=== PATIENT | male | born 1960 | race Hispanic/Latino ===

== ENCOUNTER 2018-10-06 15:30 | Emergency (ER) | payer OTHER ==
[2018-10-06] MEDS ORDERED: TETANUS/DIPHTHERIA TOXOID [ADULT] 0.5 ML VIAL IM ONE (15:44)
[2018-10-06] MEDS ORDERED: CLINDAMYCIN HCL 150 MG CAP ONE (15:44)
[2018-10-06] MEDS ORDERED: LIDOCAINE HCL 1% 20 ML VIAL ONE (15:50)
== END 2018-10-06 17:52 | disposition home or self-care (01) ==
LOC: EDH 15:30
DX: L02.611 Cutaneous abscess of right foot (principal); R03.0 Elevated blood-pressure reading, without diagnosis of hypertension; Z87.891 Personal history of nicotine dependence
CPT/HCPCS: 10060; 73620; 90471; 90714

== ENCOUNTER 2019-01-04 05:04 | Inpatient (IN) | payer OTHER ==
[~2019-01-04] VITALS: Ht 165.1 cm; Wt 65.1 kg
[2019-01-04] MEDS ORDERED: ASPIRIN 325 MG TABLET ONE (05:18)
[2019-01-04 05:39] LABS: BASOPHILS % (AUTO) 1.4 % (0.0-5.0); EOSINOPHILS % (AUTO) 3.6 % (0.0-8.0); HEMATOCRIT 40.6 % (42-54); LYMPHOCYTES % (AUTO) 39.2 % (21.0-51.0); MEAN CORPUSCULAR HEMOGLOBIN 34.2 pg (27.0-33.0); MEAN CORPUSCULAR HGB CONC 35.4 g/dL (32.0-36.0); MEAN CORPUSCULAR VOLUME 96.5 fL (79-99); MONOCYTES % (AUTO) 11.3 % (3.0-13.0); NEUTROPHILS % (AUTO) 44.5 % (40.0-77.0); NUCLEATED RED BLOOD CELLS 0.1 % (0.0-0.19); PLATELET COUNT (AUTO) 149 K/uL (130-400); RED CELL DISTRIBUTION WIDTH 13.2 % (11.0-15.5); WHITE BLOOD COUNT (AUTO) 4.2 K/uL (4.8-10.8)
[2019-01-04 05:44] LABS: CREATININE 0.8 mg/dL (0.5-1.5); INR 0.95 (0.85-1.15); PARTIAL THROMBOPLASTIN TIME 29.4 SEC (26.3-35.5); POTASSIUM 4.5 mmol/L (3.5-5.1)
[2019-01-04 05:49] LABS: ALBUMIN 3.6 g/dL (3.5-5.0); BILIRUBIN,TOTAL 0.3 mg/dL (0.2-1.0); TOTAL PROTEIN, SERUM 7.1 g/dL (6.0-8.3)
[2019-01-04 06:04] LABS: B-TYPE NATRIURETIC PEPTIDE 70 pg/mL (0-100)
[2019-01-04] MEDS ORDERED: NITROGLYCERIN 1GM/1 INCH PACKET TD ONE (06:19)
[2019-01-04] MEDS ORDERED: MORPHINE SULFATE 2 MG/ML 1ML SYG IV PRN (06:45)
[2019-01-04] MEDS ORDERED: ONDANSETRON HCL 4 MG/2 ML VIAL IV PRN (06:45)
[2019-01-04] MEDS ORDERED: ACETAMINOPHEN 325 MG TAB PO PRN ×3 (06:45→07:00)
[2019-01-04] MEDS ORDERED: ONDANSETRON HCL 4 MG/2 ML VIAL IVP PRN (07:00)
[2019-01-04] MEDS ORDERED: MORPHINE SULFATE 2 MG/ML 1ML SYG IVP PRN (07:00)
[2019-01-04] MEDS ORDERED: DEXTROSE 50%-WATER 50 ML DISP.SYRIN IV PRN ×2 (07:00)
[2019-01-04] MEDS ORDERED: NITROGLYCERIN 1GM/1 INCH PACKET TD PRN (07:00)
[2019-01-04] MEDS ORDERED: GLUCAGON 1MG KIT 1 MG ML IM PRN ×2 (07:00)
[2019-01-04] MEDS: NITROGLYCERIN 1GM/1 INCH PACKET TD SCH ×3 (07:00→22:15)
[2019-01-04 07:30] LABS: HEMOGLOBIN A1C 9.3 % (4.0-6.0)
[2019-01-04] MEDS ORDERED: INSULIN HUMULIN R 100 UNIT/ML 3ML SQ SCH (07:30)
[2019-01-04] MEDS: INSULIN R PO SS1 SQ SCH ×4 (07:30→21:00)
[2019-01-04] MEDS: ASPIRIN 81 MG EC TAB PO SCH (09:00)
[2019-01-04] MEDS ORDERED: ENOXAPARIN SODIUM 30 MG/0.3 ML SQ SCH (09:00)
[2019-01-04] MEDS: ENOXAPARIN SODIUM 30 MG/0.3 ML SQ SCH (09:00)
[2019-01-04] MEDS: FAMOTIDINE 20MG TAB 20 MG TAB PO SCH ×2 (09:00→21:01)
[2019-01-04] MEDS ORDERED: ASPIRIN 81MG TAB.CHEW PO SCH (09:00)
[2019-01-04] MEDS ORDERED: FAMOTIDINE 20MG TAB 20 MG TAB ONE (09:56)
[2019-01-04] MEDS ORDERED: HYDRALAZINE HCL 20 MG/ML VIAL ONE (09:56)
[2019-01-04] MEDS ORDERED: ENOXAPARIN SODIUM 30 MG/0.3 ML SQ ONE (09:57)
[2019-01-04 11:00] VITALS: BP 167/86
--- NOTE | 2019-01-04 11:04 | NUR ---
DR. FELIPA GARVEY PAGED REGARDING CONSULT.
--- NOTE | 2019-01-04 13:50 | NUR ---
DR. FELIPA GARVEY HERE TO SEE PATIENT.
[2019-01-04 14:15] LABS: TROPONIN I 1.11 ng/mL (0.00-0.06)
--- NOTE | 2019-01-04 14:18 | NUR ---
ELEVATED TROPONIN CALLED DR. LEO TO REPORT TROPONIN 1.11. INITIALLY DR. LEO STATED TO PROCEED WITH STRESS TEST FOR TOMORROW 01/05/19, THEN DR. LEO CALLED ME AGAIN AND ORDERED KEEP PATIENT NPO AFTER MIDNIGHT FOR A HEART CATH TOMORROW 01/05/19 AND MD WOULD F/U WITH PATIENT TOMORROW 01/05/19 MORNING.
[2019-01-04 16:35] VITALS: BP 152/108
[2019-01-04 19:24] LABS: TROPONIN I 0.18 ng/mL (0.00-0.06)
[2019-01-04 19:30] VITALS: BP 187/98
[2019-01-04] MEDS: HYDRALAZINE HCL 20 MG/ML VIAL IV PRN (21:02)
[2019-01-04 22:09] VITALS: BP 149/88
[2019-01-05] VITALS (15 sets, daily range): BP systolic 105–187; BP diastolic 63–102
[2019-01-05 04:47] LABS: HEMATOCRIT 40.8 % (42-54); MEAN CORPUSCULAR HEMOGLOBIN 33.1 pg (27.0-33.0); MEAN CORPUSCULAR HGB CONC 34.2 g/dL (32.0-36.0); MEAN CORPUSCULAR VOLUME 96.6 fL (79-99); PLATELET COUNT (AUTO) 171 K/uL (130-400); RED BLOOD CELL COUNT(AUTO) 4.22 MIL/uL (4.50-6.20); RED CELL DISTRIBUTION WIDTH 13.2 % (11.0-15.5); WHITE BLOOD COUNT (AUTO) 5.1 K/uL (4.8-10.8)
[2019-01-05 04:55] LABS: CREATININE 0.6 mg/dL (0.5-1.5); POTASSIUM 4.1 mmol/L (3.5-5.1)
[2019-01-05 04:59] LABS: INR 0.95 (0.85-1.15); PARTIAL THROMBOPLASTIN TIME 29.1 SEC (26.3-35.5)
[2019-01-05] MEDS: INSULIN R PO SS1 SQ SCH ×4 (05:45→21:32)
[2019-01-05] MEDS: NITROGLYCERIN 1GM/1 INCH PACKET TD SCH ×3 (06:16→23:00)
[2019-01-05] MEDS ORDERED: SODIUM CHLORIDE 0.9% 500ML 500 ML IV SCH (08:50)
[2019-01-05] MEDS: FAMOTIDINE 20MG TAB 20 MG TAB PO SCH ×2 (09:00→19:50)
[2019-01-05] MEDS: ENOXAPARIN SODIUM 30 MG/0.3 ML SQ SCH (09:00)
[2019-01-05] MEDS: ASPIRIN 81 MG EC TAB PO SCH (09:00)
--- NOTE | 2019-01-05 12:00 | NUR ---
INITIAL MET W PT; NO MOBILITY DEFICITS, WORKS [employer], NO DME/HH; LIVES W [facility]EL[facility] WHO WILL PROVIDE TRANSPORT; UNINSURED, PREVIOUSLY CLIENT OF [facility] [address], LOST TO FOLLOW UP; PKT GIVEN AND ADVISED TO REACH OUT FOR APPT/REAPPLY FOR SPOT. MED COUPONS GIVEN WILL NEED ELIQUIS COUPONS IF RX'D AFTER DISCHARGE Addendum: 01/06/19 at 0758 by STEFF GAVIRIA RN CM Amended: Links added.
--- NOTE | 2019-01-05 13:38 | NUR ---
Heart healthy, diabetes diet education Provided pt with printed materials on heart healthy and diabetes diet education. Also encouraged pt to eliminate alcohol intake. Pt and sister with multiple questions, all questions answered by [place]. Addendum: 01/05/19 at [address] Amended: Links added.
--- NOTE | 2019-01-05 14:32 | NUR ---
lovenox not given patient pending heart cath
[2019-01-05] MEDS ORDERED: LIDOCAINE HCL 1% 20 ML VIAL ONE (16:57)
[2019-01-05] MEDS ORDERED: BIVALIRUDIN 250 MG/VIAL IV ONE (16:58)
[2019-01-05] MEDS ORDERED: NITROGLYCERIN 5 MG/ML 10 ML VIAL IV ONE (16:58)
[2019-01-05] MEDS ORDERED: HEPARIN SODIUM 1000UNIT/ML 10ML VIAL ONE (16:58)
[2019-01-05] MEDS ORDERED: IOHEXOL-350 50ML VIAL IV ONE ×2 (16:58→18:02)
[2019-01-05] MEDS ORDERED: IOHEXOL 350 MG/ML 100ML INFUS..BTL IV ONE (16:58)
[2019-01-05] MEDS ORDERED: ONDANSETRON HCL 4 MG/2 ML VIAL ONE (17:59)
[2019-01-05] MEDS ORDERED: NITROGLYCERIN 4.1 GM SPRAY TL ONE (18:13)
[2019-01-05] MEDS ORDERED: ENALAPRILAT DIHYDRATE 1.25 MG/ML 2ML VIAL IVP ONE (18:30)
[2019-01-05] MEDS ORDERED: CEFAZOLIN SODIUM 1 GM VIAL IVP PRN (19:45)
[2019-01-05] MEDS: HYDRALAZINE HCL 20 MG/ML VIAL IV PRN (19:51)
[2019-01-05 21:26] LABS: CHOLESTEROL 164 mg/dL (<200); HDL CHOLESTEROL 130 mg/dL (29-71); LDL DIRECT 68 mg/dL (0-99); TRIGLYCERIDES 56 mg/dL (30-200)
[2019-01-05 22:06] LABS: HEMOGLOBIN A1C 9.2 % (4.0-6.0)
[2019-01-06] VITALS (22 sets, daily range): BP systolic 102–190; BP diastolic 48–100
[2019-01-06] MEDS: INSULIN R PO SS1 SQ SCH (06:26)
[2019-01-06] MEDS: NITROGLYCERIN 1GM/1 INCH PACKET TD SCH (06:37)
[2019-01-06] MEDS ORDERED: NITROGLYCERIN 50 MG/D5% WATER 1 BOT ONE (07:24)
[2019-01-06] MEDS ORDERED: PAPAVERINE HCL 30 MG/ML 2ML VIAL ONE (07:38)
[2019-01-06] MEDS ORDERED: OCTYL 2-CYANOACRYLATE 1 EACH TP ONE (07:38)
[2019-01-06] MEDS ORDERED: BACITRACIN 50,000 UNIT VIAL ONE (07:39)
[2019-01-06] MEDS: ASPIRIN 81 MG EC TAB PO SCH (08:11)
[2019-01-06] MEDS: ENOXAPARIN SODIUM 30 MG/0.3 ML SQ SCH (08:11)
[2019-01-06] MEDS: FAMOTIDINE 20MG TAB 20 MG TAB PO SCH (08:11)
--- NOTE | 2019-01-06 08:12 | NUR ---
PATIENT TAKEN DOWN TO SURGERY AT THIS TIME.
[2019-01-06] MEDS ORDERED: NOREPINEPHRINE BITARTRATE 1 MG/1 ML ML IV ONE (08:20)
[2019-01-06] MEDS ORDERED: PROTAMINE SULFATE 10 MG/ML 25ML VIAL IV ONE (08:20)
[2019-01-06] MEDS ORDERED: ESMOLOL HCL 10 MG/ML 10 ML VIAL ONE ×2 (08:20→08:45)
[2019-01-06] MEDS ORDERED: AMINOCAPROIC ACID 250 MG/ML 20 ML VIAL IV ONE (08:20)
[2019-01-06] MEDS ORDERED: EPINEPHRINE 1 MG/ML AMPULE ONE (08:20)
[2019-01-06] MEDS ORDERED: LIDOCAINE PF 2% 5ML ABBOJECT ONE (08:20)
[2019-01-06] MEDS ORDERED: HEPARIN SODIUM 1000UNIT/ML 10ML VIAL ONE (08:20)
[2019-01-06] MEDS ORDERED: ROCURONIUM 10MG/1ML SYR 10 MG/ML ML ONE (08:21)
[2019-01-06] MEDS ORDERED: PROPOFOL 10 MG/ML 20ML VIAL IV ONE ×2 (08:21→12:43)
[2019-01-06] MEDS ORDERED: FENTANYL CITRATE PF 50 MCG/1 ML 20ML VIAL IJ ONE (08:21)
[2019-01-06] MEDS ORDERED: ATROPINE SULFATE 0.1 MG/ML 10 ML SYG IVP ONE (08:21)
[2019-01-06] MEDS ORDERED: MIDAZOLAM HCL 1 MG/ML 5ML VIAL ONE (08:21)
[2019-01-06] MEDS ORDERED: ETOMIDATE 2 MG/ML 10 ML VIAL ONE (08:22)
[2019-01-06] MEDS ORDERED: AMIODARONE HCL 50 MG/ML 3 ML VIAL ONE (08:40)
[2019-01-06] MEDS ORDERED: THROMBIN-JMI 5000 UNIT/VIAL TP ONE (08:44)
[2019-01-06] MEDS ORDERED: GLYCOPYRROLATE 1 MG/5 ML SYRINGE ONE (09:01)
[2019-01-06] MEDS ORDERED: SODIUM BICARB 50MEQ 50ML VIAL ONE ×2 (09:04→12:05)
[2019-01-06 09:09] LABS: ABG BASE EXCESS -1.2 mmol/L (-2.0-3.0); ABG HCO3 20.3 mmol/L (21.0-28.0); ABG OXYGEN SATURATION 99.5 % (95.0-99.0); ABG PCO2 26 mmHg (35-48)
[2019-01-06 10:55] LABS: ABG BASE EXCESS 0.1 mmol/L (-2.0-3.0); ABG OXYGEN SATURATION 99.4 % (95.0-99.0); ABG PCO2 36 mmHg (35-48)
[2019-01-06] MEDS ORDERED: POTASSIUM CHLORIDE 20MEQ/100ML 200 ML IV ONE (11:01)
[2019-01-06] MEDS ORDERED: FENTANYL CITRATE PF 50 MCG/1 ML 2ML VIAL ONE ×3 (11:21)
[2019-01-06] MEDS ORDERED: SODIUM CHLORIDE 0.9% 500ML 500 ML IV SCH (11:47)
[2019-01-06] MEDS ORDERED: MORPHINE SULFATE 4 MG/1ML SYG IV PRN (12:00)
[2019-01-06] MEDS ORDERED: GLUCAGON 1MG KIT 1 MG ML IM PRN (12:00)
[2019-01-06] MEDS ORDERED: AMINOCAPROIC ACID 15,000 MG in SODIUM CHLORIDE 0.9% 250 ML IV SCH (12:00)
[2019-01-06] MEDS ORDERED: ACETAMINOPHEN 650 MG SUPPOSITORY RC PRN (12:00)
[2019-01-06] MEDS ORDERED: EPINEPHRINE 8 MG in DEXTROSE 5%-WATER 250 ML IV PRN (12:00)
[2019-01-06] MEDS ORDERED: MORPHINE SULFATE 2 MG/ML 1ML SYG IV PRN (12:00)
[2019-01-06] MEDS ORDERED: SODIUM CHLORIDE 0.9% 1000ML 1,000 ML IV SCH (12:00)
[2019-01-06] MEDS ORDERED: ALBUMIN (HUMAN) 5% 250 ML IV PRN (12:00)
[2019-01-06] MEDS ORDERED: POTASSIUM PHOS 15 mMOL+NS250ML 250 ML IV PRN (12:00)
[2019-01-06] MEDS ORDERED: SODIUM BICARB 50MEQ 50ML VIAL IV PRN (12:00)
[2019-01-06] MEDS ORDERED: NITROGLYCERIN 50 MG/D5% WATER 250 BOT IV SCH (12:00)
[2019-01-06] MEDS ORDERED: ACETAMINOPHEN 325 MG TAB PO PRN (12:00)
[2019-01-06] MEDS ORDERED: DEXTROSE 50%-WATER 50 ML DISP.SYRIN IV PRN (12:00)
[2019-01-06] MEDS ORDERED: SODIUM CHLORIDE 0.9% 10 ML VIAL IVP PRN (12:00)
[2019-01-06] MEDS ORDERED: ONDANSETRON HCL 4 MG/2 ML VIAL IV PRN (12:00)
[2019-01-06] MEDS ORDERED: PROPOFOL 1000 MG/100 ML 100 ML IV PRN (12:00)
[2019-01-06] MEDS ORDERED: INSULIN REGULAR, HUMAN 3ML 100 UNIT in SODIUM CHLORIDE 0.9% 99 ML IV SCH ×2 (12:00)
[2019-01-06] MEDS ORDERED: SODIUM CHLORIDE 0.9% 250 ML IV PRN (12:00)
[2019-01-06] MEDS ORDERED: NOREPINEPHRINE 4MG/NS 250ML 250 ML IV PRN (12:00)
[2019-01-06] MEDS ORDERED: CALCIUM GLUCONATE 1 GM in SODIUM CHLORIDE 0.9% 50 ML IV PRN (12:00)
[2019-01-06 12:06] LABS: ABG BASE EXCESS -4.9 mmol/L (-2.0-3.0); ABG HCO3 18.1 mmol/L (21.0-28.0); ABG PCO2 28 mmHg (35-48)
--- NOTE | 2019-01-06 12:55 | NUR ---
POST OP ASSESSMENT Received pt immediately post op - orally intubated. Not yet responsive to verbal/tactile stimulation. SR on tele. Strong apical heart tones - friction rub noted. Clear breath sounds. Vent settings as recorded. Received pt on amicar @50ml/hr - no other IV gtts infusing upon arrival. Sternal drsg is clean, dry. Dry gauze/tegaderm drsg to right side of neck at previous CVP line site. Pt with patent left SBC CVP line in use. Left radial arterial line patent - acceptable waveform/brisk blood return. PIV to RPF patent. Non-functioning SL to LAC. OGT in place - placement verified per routine and placed to LIS. Abd soft - absent bowel sounds. CT's x2 in place - 19fr left pleural, 24fr MS - Y connected to single atrium. Sanguineous drainage. No air leak - no crepitus. CT's placed to 20cm suction. F/C patent - yellow urine. JULY bandages/surgical drsgs to BLE's. Pedal pulses are palpable. Assessment completed/recorded.
--- NOTE | 2019-01-06 13:25 | NUR ---
STATUS With tactile stimulation, pt readily arousable but not cooperative with caregiver. Pt began sitting up and flailing arms. Attempts made to reassure pt but pt was unable to be pacified. Sedation initiated.
[2019-01-06] MEDS ORDERED: ALBUMIN (HUMAN) 5% 250 ML IV ONE (13:29)
[2019-01-06 13:44] LABS: ABG HCO3 22.9 mmol/L (21.0-28.0); ABG OXYGEN SATURATION 98.7 % (95.0-99.0); ABG PCO2 35 mmHg (35-48)
[2019-01-06 13:53] LABS: HEMATOCRIT 32.6 % (42-54); MEAN CORPUSCULAR HEMOGLOBIN 34.4 pg (27.0-33.0); MEAN CORPUSCULAR HGB CONC 35.1 g/dL (32.0-36.0); PLATELET COUNT (AUTO) 134 K/uL (130-400); RED BLOOD CELL COUNT(AUTO) 3.33 MIL/uL (4.50-6.20); WHITE BLOOD COUNT (AUTO) 7.8 K/uL (4.8-10.8)
[2019-01-06 14:10] LABS: INR 1.09 (0.85-1.15); PARTIAL THROMBOPLASTIN TIME 27.4 SEC (26.3-35.5); PROTHROMBIN TIME 11.4 SEC (9.6-11.6)
[2019-01-06 14:17] LABS: CREATININE 0.7 mg/dL (0.5-1.5); MAGNESIUM 1.7 mg/dL (1.80-2.40); PHOSPHORUS 4.1 mg/dL (2.5-4.9); POTASSIUM 3.7 mmol/L (3.5-5.1)
--- NOTE | 2019-01-06 14:40 | NUR ---
FAMILY VISIT Pt's family members in to see pt - updated. Discussed routine post op plan of care. Questions addressed. Pt's son, Dudley, is the spokesperson. CVR phone number provided to him. Discussed CVR visitation. Pt remains quietly sedated.
--- NOTE | 2019-01-06 16:44 | NUR ---
STATUS Drowsy - arousable with verbal stimulation. Sedation off. Will observe pt tolerance. SR on tele. No evidence of distress. Attempts made to reassure/reorient pt.
[2019-01-06] MEDS: CEFAZOLIN SODIUM 1 GM VIAL IV SCH (17:12)
[2019-01-06] MEDS: POTASSIUM CHLORIDE 20MEQ/100ML 100 ML IV PRN ×2 (17:13→22:29)
[2019-01-06] MEDS: MAGNESIUM 2GM PREMIX 50ML 50 ML IV PRN (17:13)
--- NOTE | 2019-01-06 17:45 | NUR ---
STATUS Arousable with verbal stimulation. Focuses and follows commands. ABG's acceptable. Weaning parameters attempted - pt did not meet extubation criteria. Pt reassured. Is in no acute distress. Will observe.
[2019-01-06 17:47] LABS: ABG HCO3 25.7 mmol/L (21.0-28.0); ABG OXYGEN SATURATION 97.9 % (95.0-99.0); ABG PCO2 46 mmHg (35-48)
--- NOTE | 2019-01-06 19:00 | NUR ---
ASSESSMENT ASSUMED CARE. DROWSY, AROUSABLE WHEN CALLED BY NAME. ATTEMPTS TO COMMUNICATE WITH HAND GESTURES. INTUBATED ON PRESCRIBED VENT SETTINGS. VENT WEANING IN PROGRESS. CHEST TUBES X2 SECURE AND DRAINING TO 20CM H2O SUCTION. BILATERAL LOWER EXTREMITIES WRAPPED WITH ELASTIC BANDAGES. BILATERAL PEDAL PULSES PALPABLE. HARTLEY CATHETER SECURE & PATENT. INSULIN DRIP INFUSING PER PROTOCOL. NTG DRIP INFUSING VIA LEFT SUBCLAVIAN CENTRAL LINE AT 10MCG/MIN, AMIKAR 50ML/HR, NS 10ML/HR. FULL ASSESSMENT DOCUMENTED.
[2019-01-06] MEDS ORDERED: NICARDIPINE HCL 100 MG in SODIUM CHLORIDE 0.9% 60 ML IV PRN (19:45)
[2019-01-06 21:05] LABS: ABG BASE EXCESS 2.8 mmol/L (-2.0-3.0); ABG HCO3 27.8 mmol/L (21.0-28.0); ABG OXYGEN SATURATION 98.3 % (95.0-99.0); ABG PCO2 44 mmHg (35-48)
--- NOTE | 2019-01-06 21:10 | NUR ---
EXTUBATED PER CVR VENT WEANING PROTOCOL. INSTRUCTED ON VOICE REST X2 HOURS TO PREVENT LARYNGEAL EDEMA AND RESPIRATORY DISTRESS. NODDED HEAD IN UNDERSTANDING.
[2019-01-06 21:45] LABS: ABG BASE EXCESS 0.7 mmol/L (-2.0-3.0); ABG HCO3 26.8 mmol/L (21.0-28.0); ABG OXYGEN SATURATION 98.6 % (95.0-99.0); ABG PCO2 48 mmHg (35-48)
[2019-01-06] MEDS ORDERED: CALCIUM GLUCONATE 1 GM/10 ML VIAL IV ONE (21:47)
[2019-01-06] MEDS: FAMOTIDINE/PF 20 MG/2 ML VIAL IV SCH (21:54)
[2019-01-07] VITALS (31 sets, daily range): BP systolic 100–156; BP diastolic 54–89
[2019-01-07] MEDS: CEFAZOLIN SODIUM 1 GM VIAL IV SCH ×2 (00:10→08:28)
[2019-01-07] MEDS: TRAMADOL HCL 50 MG TABLET PO PRN ×4 (00:41→20:46)
[2019-01-07] MEDS ORDERED: CALCIUM GLUCONATE 1 GM/10 ML VIAL IV ONE (01:17)
[2019-01-07 03:21] LABS: HEMATOCRIT 30.9 % (42-54); MEAN CORPUSCULAR HEMOGLOBIN 33.5 pg (27.0-33.0); MEAN CORPUSCULAR HGB CONC 34.3 g/dL (32.0-36.0); MEAN CORPUSCULAR VOLUME 97.6 fL (79-99); PLATELET COUNT (AUTO) 123 K/uL (130-400); RED BLOOD CELL COUNT(AUTO) 3.17 MIL/uL (4.50-6.20); RED CELL DISTRIBUTION WIDTH 13.3 % (11.0-15.5); WHITE BLOOD COUNT (AUTO) 7.3 K/uL (4.8-10.8)
[2019-01-07 03:25] LABS: CREATININE 0.6 mg/dL (0.5-1.5); MAGNESIUM 1.8 mg/dL (1.80-2.40); PHOSPHORUS 5.9 mg/dL (2.5-4.9); POTASSIUM 4.2 mmol/L (3.5-5.1)
[2019-01-07 04:11] LABS: ABG BASE EXCESS -0.8 mmol/L (-2.0-3.0); ABG HCO3 25.7 mmol/L (21.0-28.0); ABG OXYGEN SATURATION 98.9 % (95.0-99.0); ABG PCO2 49 mmHg (35-48)
[2019-01-07] MEDS: MAGNESIUM 2GM PREMIX 50ML 50 ML IV PRN (04:17)
[2019-01-07 04:48] LABS: INR 1.02 (0.85-1.15); PARTIAL THROMBOPLASTIN TIME 27.7 SEC (26.3-35.5); PROTHROMBIN TIME 10.5 SEC (9.6-11.6)
--- NOTE | 2019-01-07 05:00 | NUR ---
OUT OF BED TO CHAIR STRONG, STEADY GAIT. TOLERATED WELL. DENIED DIZZINESS & LIGHT-HEADEDNESS. V/S WITHIN PARAMETERS. ALL IV LINES, TUBES, SECURE. ENCOURAGED I.S. Q1HR. TOLERATED 500ML X10 . WEANED OFF ALL DRIPS. CURRENTLY ONLY INSULIN DRIP INFUSING PER CVR PROTOCOL.
[2019-01-07] MEDS ORDERED: PHARMACY COMMUNICATION MISC SCH (06:15)
[2019-01-07] MEDS ORDERED: CALCIUM GLUCONATE 2 GM in SODIUM CHLORIDE 0.9% 100 ML IV SCH (08:00)
[2019-01-07] MEDS: FAMOTIDINE/PF 20 MG/2 ML VIAL IV SCH ×2 (08:27→20:16)
[2019-01-07] MEDS: METOPROLOL TARTRATE 25 MG TAB PO SCH ×2 (08:28→20:16)
[2019-01-07] MEDS ORDERED: ASPIRIN 81MG TAB.CHEW PO SCH (09:00)
[2019-01-07] MEDS ORDERED: PROMETHAZINE HCL 25 MG/ML 1ML AMPULE IVPB PRN (11:00)
[2019-01-07] MEDS: METOCLOPRAMIDE 10 MG/2 ML VIAL IVP SCH ×2 (11:15→20:16)
[2019-01-07] MEDS: ENOXAPARIN SODIUM 30 MG/0.3 ML SQ SCH (11:16)
[2019-01-07] MEDS: DEXTROSE IV SCH (11:33)
[2019-01-07] MEDS: NACL IV SCH (11:33)
[2019-01-07] MEDS: POTASSIUM CHLORIDE IV SCH (11:33)
[2019-01-07] MEDS: ATORVASTATIN CALCIUM 40 MG TABLET PO SCH (20:16)
[2019-01-07] MEDS: INSULIN HUMULIN R 100 UNIT/ML 3ML SQ SCH (21:25)
[2019-01-08] VITALS (17 sets, daily range): BP systolic 100–151; BP diastolic 55–81
[2019-01-08 03:52] LABS: BASOPHILS % (AUTO) 0.4 % (0.0-5.0); EOSINOPHILS % (AUTO) 0.5 % (0.0-8.0); LYMPHOCYTES % (AUTO) 11.3 % (21.0-51.0); MEAN CORPUSCULAR HEMOGLOBIN 34.8 pg (27.0-33.0); MEAN CORPUSCULAR HGB CONC 35.3 g/dL (32.0-36.0); MEAN CORPUSCULAR VOLUME 98.6 fL (79-99); MONOCYTES % (AUTO) 12.4 % (3.0-13.0); NEUTROPHILS % (AUTO) 75.4 % (40.0-77.0); NUCLEATED RED BLOOD CELLS 0.1 % (0.0-0.19); PLATELET COUNT (AUTO) 122 K/uL (130-400); RED BLOOD CELL COUNT(AUTO) 2.94 MIL/uL (4.50-6.20); RED CELL DISTRIBUTION WIDTH 12.8 % (11.0-15.5); WHITE BLOOD COUNT (AUTO) 8.8 K/uL (4.8-10.8)
[2019-01-08 03:58] LABS: CREATININE 0.8 mg/dL (0.5-1.5); POTASSIUM 4.5 mmol/L (3.5-5.1)
[2019-01-08] MEDS: POTASSIUM CHLORIDE IV SCH (04:32)
[2019-01-08] MEDS: NACL IV SCH (04:32)
[2019-01-08] MEDS: DEXTROSE IV SCH (04:32)
[2019-01-08] MEDS: MAGNESIUM 2GM PREMIX 50ML 50 ML IV PRN (05:24)
[2019-01-08] MEDS: INSULIN HUMULIN R 100 UNIT/ML 3ML SQ SCH ×4 (06:33→20:47)
[2019-01-08] MEDS ORDERED: ASPIRIN 325 MG TABLET ONE (08:08)
[2019-01-08] MEDS: METOCLOPRAMIDE 10 MG/2 ML VIAL IVP SCH ×2 (08:09→20:38)
[2019-01-08] MEDS: FAMOTIDINE/PF 20 MG/2 ML VIAL IV SCH (08:09)
[2019-01-08] MEDS: METOPROLOL TARTRATE 25 MG TAB PO SCH ×2 (08:10→20:37)
[2019-01-08] MEDS: ENOXAPARIN SODIUM 30 MG/0.3 ML SQ SCH (08:11)
[2019-01-08] MEDS ORDERED: ASPIRIN 81MG TAB.CHEW PO SCH (09:00)
[2019-01-08] MEDS: ATORVASTATIN CALCIUM 40 MG TABLET PO SCH (20:37)
[2019-01-08] MEDS: FAMOTIDINE 20MG TAB 20 MG TAB PO SCH (20:37)
[2019-01-08] MEDS: TRAMADOL HCL 50 MG TABLET PO PRN (21:35)
[2019-01-09] VITALS (7 sets, daily range): BP systolic 119–157; BP diastolic 72–93
[2019-01-09 03:59] LABS: HEMATOCRIT 28.6 % (42-54); MEAN CORPUSCULAR HEMOGLOBIN 33.4 pg (27.0-33.0); MEAN CORPUSCULAR HGB CONC 34.3 g/dL (32.0-36.0); MEAN CORPUSCULAR VOLUME 97.4 fL (79-99); PLATELET COUNT (AUTO) 135 K/uL (130-400); RED BLOOD CELL COUNT(AUTO) 2.93 MIL/uL (4.50-6.20); RED CELL DISTRIBUTION WIDTH 12.8 % (11.0-15.5); WHITE BLOOD COUNT (AUTO) 6.8 K/uL (4.8-10.8)
[2019-01-09 04:27] LABS: CREATININE 0.7 mg/dL (0.5-1.5)
[2019-01-09] MEDS: INSULIN HUMULIN R 100 UNIT/ML 3ML SQ SCH (06:01)
[2019-01-09] MEDS: ASPIRIN 325MG EC TAB 325 MG TABLET.DR PO SCH (08:25)
[2019-01-09] MEDS: FAMOTIDINE 20MG TAB 20 MG TAB PO SCH ×2 (08:25→20:08)
[2019-01-09] MEDS: METOCLOPRAMIDE 10 MG/2 ML VIAL IVP SCH (08:25)
[2019-01-09] MEDS: METOPROLOL TARTRATE 25 MG TAB PO SCH ×2 (08:25→20:08)
[2019-01-09] MEDS: ENOXAPARIN SODIUM 30 MG/0.3 ML SQ SCH (08:25)
[2019-01-09] MEDS: MAGNESIUM 2GM PREMIX 50ML 50 ML IV PRN (08:27)
[2019-01-09] MEDS: METFORMIN HCL 500 MG TABLET PO SCH ×2 (14:08→17:27)
[2019-01-09] MEDS: INSULIN LISPRO 100 UNIT/ML 3ML SQ SCH ×2 (16:30→20:12)
[2019-01-09] MEDS: GLIPIZIDE 5 MG TABLET PO SCH (17:27)
[2019-01-09] MEDS: ATORVASTATIN CALCIUM 40 MG TABLET PO SCH (20:07)
[2019-01-10 03:45] VITALS: BP 152/70
[2019-01-10 04:12] LABS: BASOPHILS % (AUTO) 0.5 % (0.0-5.0); EOSINOPHILS % (AUTO) 0.3 % (0.0-8.0); HEMATOCRIT 28.4 % (42-54); LYMPHOCYTES % (AUTO) 13.9 % (21.0-51.0); MEAN CORPUSCULAR HEMOGLOBIN 34.3 pg (27.0-33.0); MEAN CORPUSCULAR HGB CONC 35.5 g/dL (32.0-36.0); MEAN CORPUSCULAR VOLUME 96.8 fL (79-99); MONOCYTES % (AUTO) 14.4 % (3.0-13.0); NEUTROPHILS % (AUTO) 70.9 % (40.0-77.0); PLATELET COUNT (AUTO) 180 K/uL (130-400); RED BLOOD CELL COUNT(AUTO) 2.94 MIL/uL (4.50-6.20); RED CELL DISTRIBUTION WIDTH 12.9 % (11.0-15.5); WHITE BLOOD COUNT (AUTO) 6.9 K/uL (4.8-10.8)
[2019-01-10 04:16] LABS: CREATININE 0.8 mg/dL (0.5-1.5); POTASSIUM 4.1 mmol/L (3.5-5.1)
[2019-01-10] MEDS: TRAMADOL HCL 50 MG TABLET PO PRN (05:43)
[2019-01-10] MEDS: INSULIN LISPRO 100 UNIT/ML 3ML SQ SCH ×2 (05:52→10:55)
[2019-01-10] MEDS: GLIPIZIDE 5 MG TABLET PO SCH (06:43)
[2019-01-10 07:00] VITALS: BP 129/70
[2019-01-10] MEDS: METOPROLOL TARTRATE 25 MG TAB PO SCH (07:39)
[2019-01-10] MEDS: ASPIRIN 325MG EC TAB 325 MG TABLET.DR PO SCH (07:39)
[2019-01-10] MEDS: ENOXAPARIN SODIUM 30 MG/0.3 ML SQ SCH (07:39)
[2019-01-10] MEDS: METFORMIN HCL 500 MG TABLET PO SCH (07:39)
[2019-01-10] MEDS: FAMOTIDINE 20MG TAB 20 MG TAB PO SCH (07:39)
--- NOTE | 2019-01-10 07:40 | NUR ---
ASSESSMENT PT IS AAOX4 DENIES CP DENIES SOB DENIES NV NO COMPLAINTS RESTING IN BED, DR JOHAN HAMMOND, SAW PATIENT. STERNAL INCISION CLEAN DRY AND INTACT, ENCOURAGED COUGH AND DEEP BREATHING WITH HEART PILLOW SPLINTING, ALSO USE OF IS 10XS Q1HR WHILE AWAKE.
[2019-01-10 10:35] VITALS: BP 107/72
[2019-01-10] MEDS ORDERED: METF850T PO (11:19)
[2019-01-10] MEDS ORDERED: METO25 PO (11:19)
[2019-01-10] MEDS ORDERED: GLIP5TAB11 PO (11:19)
[2019-01-10] MEDS ORDERED: ATOR40TA69 PO (11:19)
[2019-01-10] MEDS ORDERED: ASPI-555 PO (11:19)
[2019-01-10] MEDS ORDERED: TRAM50TA4 PO (11:20)
--- NOTE | 2019-01-10 12:59 | NUR ---
DC TO HOME PATIENT AND FAMILY VERBALIZE DC INSTRUCTIONS UNDERSTANDING AGREE TO FOLLOW UP WITH PRIMARY MD. ALL QUESTIONS ANSWERED, PIV REMOVED CATH TIP INTACT. AGREE TO TAKE MEDICATIONS ORDERED AND FOLLOW UP WITH FELIPA AND DR DENISE. DOWN VIA WC WITH FAMILY AND NURSE AIDE.
[2019-01-10] MEDS ORDERED: METFORMIN HCL 850 MG TABLET PO SCH (16:30)
== END 2019-01-10 13:04 | disposition home or self-care (01) | DRG 234 ==
LOC: EDH 05:04 → EDHIP 05:05 → OBSVTOIN 05:05 → 4BH 10:22 → 2CV 01-06 08:28 → 2CH 01-07 10:07 → 2AH 01-08 17:32
PROVIDERS: ADMIT Internal Medicine; ATTEND Internal Medicine
PROC: 4A023N7 Measurement of Cardiac Sampling and Pressure, Left Heart, Percutaneous Approach (ICD-10-PCS; 2019-01-05)
PROC: B2111ZZ Fluoroscopy of Multiple Coronary Arteries using Low Osmolar Contrast (ICD-10-PCS; 2019-01-05)
PROC: B2151ZZ Fluoroscopy of Left Heart using Low Osmolar Contrast (ICD-10-PCS; 2019-01-05)
PROC: 06BQ3ZZ Excision of Left Saphenous Vein, Percutaneous Approach (ICD-10-PCS; 2019-01-06)
PROC: 06BP3ZZ Excision of Right Saphenous Vein, Percutaneous Approach (ICD-10-PCS; 2019-01-06)
PROC: 5A1221Z Performance of Cardiac Output, Continuous (ICD-10-PCS; 2019-01-06)
PROC: 021309W Bypass Coronary Artery, Four or More Arteries from Aorta with Autologous Venous Tissue, Open Approach (ICD-10-PCS; principal; 2019-01-06 08:36)
PROC: 02100Z9 Bypass Coronary Artery, One Artery from Left Internal Mammary, Open Approach (ICD-10-PCS; 2019-01-06 08:36)
DX: I21.4 Non-ST elevation (NSTEMI) myocardial infarction (principal); J98.11 Atelectasis; I25.110 Atherosclerotic heart disease of native coronary artery with unstable angina pectoris; E11.9 Type 2 diabetes mellitus without complications; E78.5 Hyperlipidemia, unspecified; I10 Essential (primary) hypertension; M17.12 Unilateral primary osteoarthritis, left knee; Z79.82 Long term (current) use of aspirin; Z79.899 Other long term (current) drug therapy; Z83.3 Family history of diabetes mellitus; Z82.49 Family history of ischemic heart disease and other diseases of the circulatory system
CPT/HCPCS: 36415; 71045; 80048; 80053; 80061; 82330; 82435; 82550; 82803; 82947; 82948; 83036; 83605; 83735; 83874; 83880; 84100; 84132; 84295; 84484; 85018; 85025; 85027; 85347; 85610; 85730; 86850; 86900; 86901; 86922; 93005; 93458; 93880; 94002; 94010; 94150; 97039; A7048; C1760; C1894; G0378; J0171; J0282; J0360; J0461; J0583; J0610; J0690; J1644; J1650; J1815; J2001; J2250; J2405; J2440; J2704; J2720; J2765; J3010; J3475; J3480; J3490; J7030; J7040; J7042; J7120; P9045; Q9967

== ENCOUNTER 2019-02-16 09:36 | Emergency (ER) | payer OTHER ==
[~2019-02-16 09:36] MED LIST: ASPI-555 PO; ATOR40TA69 PO; GLIP5TAB11 PO; METF850T PO; METO25 PO; TRAM50TA4 PO
[2019-02-16 10:38] LABS: BASOPHILS % (AUTO) 1.3 % (0.0-5.0); EOSINOPHILS % (AUTO) 4.5 % (0.0-8.0); HEMATOCRIT 36.7 % (42-54); LYMPHOCYTES % (AUTO) 26.2 % (21.0-51.0); MEAN CORPUSCULAR HEMOGLOBIN 31.3 pg (27.0-33.0); MEAN CORPUSCULAR HGB CONC 33.9 g/dL (32.0-36.0); MEAN CORPUSCULAR VOLUME 92.2 fL (79-99); MONOCYTES % (AUTO) 8.9 % (3.0-13.0); NEUTROPHILS % (AUTO) 59.1 % (40.0-77.0); NUCLEATED RED BLOOD CELLS 0.1 % (0.0-0.19); PLATELET COUNT (AUTO) 227 K/uL (130-400); RED BLOOD CELL COUNT(AUTO) 3.98 MIL/uL (4.50-6.20); RED CELL DISTRIBUTION WIDTH 14.2 % (11.0-15.5); WHITE BLOOD COUNT (AUTO) 6.9 K/uL (4.8-10.8)
[2019-02-16 10:50] LABS: INR 1.09 (0.85-1.15); PROTHROMBIN TIME 11.4 SEC (9.6-11.6)
[2019-02-16 11:02] LABS: CREATININE 0.7 mg/dL (0.5-1.5); POTASSIUM 4.1 mmol/L (3.5-5.1)
[2019-02-16 11:05] LABS: APPEARANCE,URINE Clear (CLEAR); BILIRUBIN,URINE Negative (NEGATIVE); COLOR,URINE Yellow (YELLOW); GLUCOSE, URINE (UA) Negative (NEGATIVE); KETONES,URINE Negative (NEGATIVE); LEUKOCYTE ESTERASE ,URINE Negative (NEGATIVE); NITRATE,URINE Negative (NEGATIVE); OCCULT BLOOD,URINE Negative (NEGATIVE); PROTEIN,URINE Negative (NEGATIVE); UROBILINOGEN,URINE 0.2 mg/dL (0.2-1.0)
[2019-02-16 11:07] LABS: BILIRUBIN,TOTAL 0.6 mg/dL (0.2-1.0); CRP QUANTITATIVE 4.1 mg/L (0.00-9.0); TOTAL PROTEIN, SERUM 7.9 g/dL (6.0-8.3)
[2019-02-16 11:41] LABS: ERYTHROCYTE SEDIMENTATION RATE 11 MM/HR (0-20)
[2019-02-16] MEDS ORDERED: CLINDAMYCIN HCL 150 MG CAP ONE (11:51)
== END 2019-02-16 12:13 | disposition home or self-care (01) ==
LOC: EDH 09:36
DX: L02.219 Cutaneous abscess of trunk, unspecified (principal); E11.65 Type 2 diabetes mellitus with hyperglycemia; I10 Essential (primary) hypertension
CPT/HCPCS: 10060; 36415; 80053; 81003; 82550; 85025; 85610; 85651; 85730; 86140; 93005

== ENCOUNTER 2019-07-26 16:30 | Emergency (ER) | payer SELFPAY ==
[2019-07-26] MEDS ORDERED: ASPIRIN 81MG TAB.CHEW ONE (17:21)
[2019-07-26] MEDS ORDERED: NITROGLYCERIN 1GM/1 INCH PACKET TD ONE (17:21)
[2019-07-26 17:35] LABS: BASOPHILS % (AUTO) 0.9 % (0.0-5.0); EOSINOPHILS % (AUTO) 1.7 % (0.0-8.0); HEMATOCRIT 38.4 % (42-54); LYMPHOCYTES % (AUTO) 36.3 % (21.0-51.0); MEAN CORPUSCULAR HEMOGLOBIN 30.4 pg (27.0-33.0); MEAN CORPUSCULAR HGB CONC 34.1 g/dL (32.0-36.0); MEAN CORPUSCULAR VOLUME 89.1 fL (79-99); MONOCYTES % (AUTO) 9.8 % (3.0-13.0); NEUTROPHILS % (AUTO) 51.1 % (40.0-77.0); PLATELET COUNT (AUTO) 193 K/uL (130-400); RED BLOOD CELL COUNT(AUTO) 4.31 MIL/uL (4.50-6.20); RED CELL DISTRIBUTION WIDTH 13.2 % (11.0-15.5); WHITE BLOOD COUNT (AUTO) 5.7 K/uL (4.8-10.8)
[2019-07-26 17:51] LABS: INR 0.95 (0.85-1.15); PARTIAL THROMBOPLASTIN TIME 28.9 SEC (26.3-35.5)
[2019-07-26 18:05] LABS: CREATININE 0.3 mg/dL (0.5-1.5)
[2019-07-26 18:09] LABS: ALBUMIN 3.8 g/dL (3.5-5.0); BILIRUBIN,TOTAL 0.4 mg/dL (0.2-1.0); TOTAL PROTEIN, SERUM 7.3 g/dL (6.0-8.3)
[2019-07-26 18:21] LABS: B-TYPE NATRIURETIC PEPTIDE 23 pg/mL (0-100)
[2019-07-26] MEDS ORDERED: SODIUM CHLORIDE 0.9% 1000ML 1,000 ML IV ONE (19:35)
[2019-07-26 20:07] LABS: APPEARANCE,URINE Clear (CLEAR); BILIRUBIN,URINE Negative (NEGATIVE); COLOR,URINE Yellow (YELLOW); GLUCOSE, URINE (UA) >=1000 mg/dL (NEGATIVE); KETONES,URINE Negative (NEGATIVE); LEUKOCYTE ESTERASE ,URINE Negative (NEGATIVE); NITRATE,URINE Negative (NEGATIVE); OCCULT BLOOD,URINE Negative (NEGATIVE); PROTEIN,URINE Negative (NEGATIVE); UROBILINOGEN,URINE 0.2 mg/dL (0.2-1.0)
[2019-07-26 20:23] LABS: RBC,URINE None Seen /HPF (0-1)
[2019-07-26 20:24] LABS: BACTERIA,URINE None Seen /HPF (None Seen); SQUAMOUS EPITHELIAL CELL,UR None Seen /HPF (0-2); WBC,URINE 0-1 /HPF (0-1)
== END 2019-07-26 20:41 | disposition home or self-care (01) ==
LOC: EDH 16:30
DX: R07.89 Other chest pain (principal); E11.65 Type 2 diabetes mellitus with hyperglycemia; I10 Essential (primary) hypertension; I25.10 Atherosclerotic heart disease of native coronary artery without angina pectoris; Z79.84 Long term (current) use of oral hypoglycemic drugs; Z79.82 Long term (current) use of aspirin; Z87.891 Personal history of nicotine dependence
CPT/HCPCS: 36415; 71045; 80053; 81001; 82550; 83880; 84484 ×2; 85025; 85610; 85730; 93005 ×2; 96360; 99285; J7030

== ENCOUNTER 2023-05-11 14:16 | Emergency (ER) | payer OTHER ==
[~2023-05-11 14:16] MED LIST changes: -ASPI-555 PO; +ASPI-556 PO; -GLIP5TAB11 PO; +GLIP5TAB15 PO
== END 2023-05-11 15:48 | disposition left against medical advice (07) ==
LOC: EDH 14:16
DX: R68.89 Other general symptoms and signs (principal); Z53.21 Procedure and treatment not carried out due to patient leaving prior to being seen by health care provider